=== PATIENT | female | born 1955 | race Hispanic/Latino ===

== ENCOUNTER 2017-07-29 11:34 | Emergency (ER) | payer MEDICARE, MEDICAID, OTHER ==
[2017-07-29 12:20] VITALS: BP 172/77; PULSE 63; RESP 20; TEMP 97.7; O2SAT 97
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
== END 2017-07-29 14:28 | disposition home or self-care (01) ==
LOC: H.ER 11:34
DX: F17.200 Nicotine dependence, unspecified, uncomplicated (principal); I25.10 Atherosclerotic heart disease of native coronary artery without angina pectoris; J44.9 Chronic obstructive pulmonary disease, unspecified; I25.2 Old myocardial infarction; V03.10XA Pedestrian on foot injured in collision with car, pick-up truck or van in traffic accident, initial encounter

== ENCOUNTER 2017-09-27 11:17 | Emergency (ER) | payer MEDICARE, MEDICAID ==
[2017-09-27 11:19] VITALS: BMI 24.1
[2017-09-27 11:21] VITALS: O2SAT 97
--- NOTE | 2017-09-27 12:06 | ED PDOC ---
HPI: General Adult Time Seen by Provider: 09/27/17 11:45 Chief Complaint (Nursing): Cough, Cold, Congestion Chief Complaint (Provider): Cough History Per: Patient History/Exam Limitations: no limitations Onset/Duration Of Symptoms: Days (14 days) Current Symptoms Are (Timing): Still Present Additional Complaint(s): 61 y/o female with a history of hypertension, coronary artery disease, and myocardial infarction, presents to the ED complaining of cough for 14 days. Patient was initially febrile but denies fever x1week. Of note, patient has taken 2 courses of Zithromax. She also reports of mild shortness of breath, but denies chest pain. Past Medical History Reviewed: Historical Data, Nursing Documentation, Vital Signs Vital Signs: Last Vital Signs Temp 98 F 09/27/17 14:49 Pulse 62 09/27/17 14:49 Resp 20 09/27/17 14:49 BP 147/80 09/27/17 14:49 Pulse Ox 97 09/27/17 14:49 - Medical History PMH: Arthritis, CAD (with stent placement), COPD, Deep Vein Thrombosis, HTN - Family History Family History: States: Unknown Family Hx - Social History Current smoker - smoking cessation education provided: Yes SMOKER/PACKS PER DAY:: 10 (cigarettes daily) Alcohol: None Drugs: Denies - Home Medications Home Medications: Ambulatory Orders Medication Instructions Recorded Aspirin 81 mg PO DAILY 03/25/14 Atorvastatin Calcium [Lipitor] 40 mg PO DAILY 03/25/14 Clopidogrel [Plavix] 75 mg PO DAILY 03/25/14 Metoprolol Succinate 25 mg PO DAILY 03/25/14 Omeprazole [Prilosec] 20 mg PO DAILY 03/25/14 Valacyclovir HCl [Valacyclovir] 1 gm PO DAILY 03/25/14 Zolpidem Tartrate [Zolpidem] 5 mg PO DAILY 03/25/14 Acetaminophen [Tylenol 325mg tab] 650 mg PO QID #25 tab 07/29/17 Albuterol HFA [Ventolin HFA 90 2 puff IH Q4H #1 puff 09/27/17 mcg/actuation (8 g)] - Allergies Allergies/Adverse Reactions: Allergies Allergy/AdvReac Type Severity Reaction Status Date / Time amoxicillin Allergy RASH Verified 09/27/17 11:56 levofloxacin [From Levaquin] Allergy RASH Verified 07/29/17 12:22 Review of Systems ROS Statement: Except As Marked, All Systems Reviewed And Found Negative Constitutional: Positive for: Fever (initially, but currently afebrile x1week) Cardiovascular: Negative for: Chest Pain Respiratory: Positive for: Shortness of Breath (mild) Physical Exam - Reviewed Nursing Documentation Reviewed: Yes Vital Signs Reviewed: Yes - Physical Exam Appears: Positive for: Non-toxic, No Acute Distress Head Exam: Positive for: ATRAUMATIC, NORMAL INSPECTION, NORMOCEPHALIC Skin: Positive for: Normal Color, Warm Eye Exam: Positive for: Normal appearance, EOMI, PERRL ENT: Positive for: Normal ENT Inspection Neck: Positive for: Normal, Painless ROM, Supple Cardiovascular/Chest: Positive for: Regular Rate, Rhythm. Negative for: Murmur Respiratory: Positive for: Rhonchi (scattered ). Negative for: Wheezing Back: Positive for: Normal Inspection Extremity: Positive for: Normal ROM. Negative for: Pedal Edema, Deformity Neurologic/Psych: Positive for: Alert, Oriented - Laboratory Results Result Diagrams: 09/27/17 13:30 09/27/17 13:55 - ECG O2 Sat by Pulse Oximetry: 97 (RA) Pulse Ox Interpretation: Normal Medical Decision Making Medical Decision Making: Time: --11:59 Impression: --Chronic Bronchitis Plan: --ECG --labs --ED urine Dip --Chest X-ray Reassess -- Scribe Attestation: Documented by Moose Crain acting as a scribe for Eyal Gil MD. Disposition - Clinical Impression Clinical Impression: Bronchitis, chronic - Patient ED Disposition Is Patient to be Admitted: No Counseled Patient/Family Regarding: Studies Performed, Diagnosis, Need For Followup, Rx Given - Disposition Referrals: Ej Cervantes MD [Staff Provider] - Disposition: Routine/Home Disposition Time: 15:01 Condition: FAIR Prescriptions: Albuterol HFA [Ventolin HFA 90 mcg/actuation (8 g)] 2 puff IH Q4H #1 puff Instructions: Chronic Bronchitis (ED) Forms: [email or web address] (Citizen Of [place])
--- NOTE | 2017-09-27 13:15 | RAD ---
HISTORY: cough COMPARISON: No prior. TECHNIQUE: Chest PA and lateral FINDINGS: LUNGS: No active pulmonary disease. PLEURA: No significant pleural effusion identified. No pneumothorax apparent. CARDIOVASCULAR: Normal. OSSEOUS STRUCTURES: No significant abnormalities. VISUALIZED UPPER ABDOMEN: Normal. OTHER FINDINGS: None. IMPRESSION: No acute cardiopulmonary disease appreciated.
[2017-09-27 13:56] LABS: BASO # 0.2 K/uL (0.0-0.2); BASO % 1.1 % (0.0-2.0); EOS # 0.6 K/uL (0.0-0.7); EOS % 4.2 % (0.0-4.0); HEMOGLOBIN 17.7 g/dL (12.0-16.0); LYMPH # 4.5 K/uL (1.0-4.3); LYMPH % 29.7 % (20.0-40.0); MEAN CELL VOLUME 98.4 fl (81.0-99.0); MEAN CORPUSCULAR HEMOGLOBIN 32.3 pg (27.0-31.0); MEAN CORPUSCULAR HGB CONC 32.9 g/dL (33.0-37.0); MEAN PLATELET VOLUME 8.5 fl (7.2-11.7); MONO # 1.3 K/uL (0.0-0.8); MONO % 8.7 % (0.0-10.0); NEUT # 8.5 K/uL (1.8-7.0); NEUT % 56.3 % (50.0-75.0); NRBC % 0.1 % (0.0-0.0); RBC 5.46 Mil/uL (3.80-5.20); RED CELL DISTRIBUTION WIDTH 14.3 % (11.5-14.5); WHITE BLOOD COUNT 15.1 K/uL (4.8-10.8)
[2017-09-27 14:42] LABS: ALB/GLOB RATIO 1.2 (1.0-2.1); ALT/SGPT 43 U/L (9-52); AST/SGOT 32 U/L (14-36); BLOOD UREA NITROGEN 10 mg/dl (7-17); GFR AFRICAN-AMERICAN > 60; GFR NON-AFRICAN AMERICAN > 60
[2017-09-27 14:50] VITALS: BP 147/80; PULSE 62; RESP 20; TEMP 98
--- NOTE | 2017-09-27 19:22 | CARD ---
APPROVED REPORT EKG Measurement Heart [id number] <Conclusion> Normal sinus rhythm Possible Left atrial enlargement Borderline ECG
== END 2017-09-27 17:25 | disposition home or self-care (01) ==
LOC: H.ER 11:17
DX: J40 Bronchitis, not specified as acute or chronic (principal); I10 Essential (primary) hypertension; I25.10 Atherosclerotic heart disease of native coronary artery without angina pectoris; I25.2 Old myocardial infarction; Z79.82 Long term (current) use of aspirin; Z86.718 Personal history of other venous thrombosis and embolism; Z95.5 Presence of coronary angioplasty implant and graft; J44.9 Chronic obstructive pulmonary disease, unspecified